=== PATIENT | female | born 1945 | race Caucasian/White ===

== ENCOUNTER → 2016-05-29 | Outpatient (CLI) | payer MEDICARE, OTHER ==
[2016-01-06 18:41] VITALS: BP 158/80
--- NOTE | 2016-05-29 17:14 | RAD ---
Three-view bilateral hand radiographs 05/29/2016 Clinical history: Bilateral hand pain. PA, lateral and oblique digital radiographs of both hands were obtained. No fracture or dislocation of either hand is seen. Mild to moderate degenerative changes are seen scattered throughout the interphalangeal joints of both hands. Moderate degenerative changes are seen involving the MCP joint of the right third finger. Mild degenerative changes are seen involving the radiocarpal joint. Mild to moderate degenerative changes are seen involving the mid carpal joint, left greater than right. Mild to moderate degenerative changes are seen involving the first carpometacarpal joints and first MCP joints bilaterally. Minimal subluxation is seen involving the PIP joint of the right third finger. Impression: Degenerative changes are seen involving both hands and wrists is outlined above. No acute osseous abnormality is seen.
== END | disposition home or self-care (01) ==
LOC: DXRADRC 10:32
PROVIDERS: ATTEND Plastic Surgery
DX: M79.642 Pain in left hand (principal); M79.641 Pain in right hand
CPT/HCPCS: 73130